=== PATIENT | male | born 1950 | race Caucasian/White ===

== ENCOUNTER → 2016-12-12 | Day surgery (SDC) | payer MEDICARE, OTHER ==
[~2016-12-12] MED LIST: ASACOL400 MG PO; ASPIR LOW81 MG PO; ATROVENT30 ML INH; FENOFIBRATE160 MG PO; FLORINEF ACETA0.1 MG PO; LEVAQUIN 5500 MG/TA1 PO; METHADONE10 MG PO; PERCOCET 325 MG1 TA2 PO; PHENERGAN 25 TA25 MG PO; PLAVIX 75MG TAB75 MG PO; RESTORIL15 MG PO; THEOPHYLLINE E300 MG PO; ZOCOR10 M1 PO; ZOCOR40 MG PO; ZOFRAN8 MG PO; ZYRTEC10 MG PO
== END ==
LOC: MSO 08:35
DX: K57.30 Diverticulosis of large intestine without perforation or abscess without bleeding (principal); G47.33 Obstructive sleep apnea (adult) (pediatric); J44.9 Chronic obstructive pulmonary disease, unspecified; J45.909 Unspecified asthma, uncomplicated; Z87.891 Personal history of nicotine dependence
CPT/HCPCS: 00810; J7120

== ENCOUNTER → 2017-02-17 | Outpatient (CLI) | payer MEDICARE, OTHER ==
[2015-11-09 15:51] VITALS: BP 137/90
== END ==
LOC: CARDREHAB 10:24
DX: I25.3 Aneurysm of heart (principal); R06.00 Dyspnea, unspecified; E78.5 Hyperlipidemia, unspecified; Z87.891 Personal history of nicotine dependence; I20.8 Other forms of angina pectoris
CPT/HCPCS: A9500

== ENCOUNTER → 2017-03-24 | Outpatient (CLI) | payer MEDICARE, OTHER ==
[~2017-03-24] VITALS: Ht 180.3 cm; Wt 108.6 kg
[2017-03-24 17:15] VITALS: BP 191/101
== END ==
LOC: AMSURD 16:30
DX: Z01.818 Encounter for other preprocedural examination (principal); I26.99 Other pulmonary embolism without acute cor pulmonale; E78.5 Hyperlipidemia, unspecified; M17.0 Bilateral primary osteoarthritis of knee

== ENCOUNTER → 2017-05-23 | Outpatient (CLI) | payer MEDICARE, OTHER ==
[2017-03-24 17:15] VITALS: BP 191/101
== END ==
LOC: LAB 16:04
DX: E29.1 Testicular hypofunction (principal)

== ENCOUNTER → 2017-12-05 | Outpatient (CLI) | payer MEDICARE, OTHER ==
[2017-03-24 17:15] VITALS: BP 191/101
[2017-12-05 11:52] LABS: EOS # 0.2 (0.04-0.40); EOS % 3.1 % (0.0-4.0); HEMATOCRIT 45.5 % (42.0-52.0); HEMOGLOBIN 15.7 g/dL (13.5-18.0); LYMPH# 1.7 (1.50-4.00); MEAN CELL VOLUME 79 fl (78-100); MEAN CORPUSCULAR HEMOGLOBIN 27 pg (27-31); MEAN CORPUSCULAR HGB CONC 35 g/dL (33-37); MEAN PLATELET VOLUME 9.6 fl (7.4-10.4); MONO # 0.8 (0.20-0.80); NEU # 4.1 (1.40-6.50); PLATELET COUNT 250 K/mm3 (130-400); RED BLOOD COUNT 5.73 M/mm3 (4.20-5.60); RED CELL DISTRIBUTION WIDTH 14.9 % (11.5-14.5); WHITE BLOOD COUNT 6.8 K/mm3 (4.8-10.8)
[2017-12-05 11:57] LABS: CALCIUM 9.1 mg/dL (8.4-10.2); POTASSIUM 3.8 mmol/L (3.6-5.0); TOTAL BILIRUBIN 0.4 mg/dL (0.2-1.3); TOTAL PROTEIN 7.2 g/dL (6.3-8.2)
[2017-12-05 13:14] LABS: ERYTHROCYTE SEDIMENTATION RATE 2 mm/hr (0-20)
[2017-12-06 00:25] LABS: TESTOSTERONE 723 ng/dL (221-716)
== END ==
LOC: LAB 11:23
PROVIDERS: Internal Medicine
DX: R55 Syncope and collapse (principal); G64 Other disorders of peripheral nervous system; F33.1 Major depressive disorder, recurrent, moderate; E11.9 Type 2 diabetes mellitus without complications

== ENCOUNTER → 2017-12-25 | Outpatient (CLI) | payer MEDICARE, OTHER ==
[~2017-12-25] VITALS: Ht 180.3 cm; Wt 108.6 kg
[~2017-12-25] MED LIST changes: +ASPIRIN E.C. 8181 MG PO; +CELEXA 20MG20 MG/TA1 PO; +CYPROHEPTADINE H4 M1 PO; +DEPO-TESTOS200 MG/M1 IM; +FLORINEF 00.1 MG/TAB PO; +KLONOPIN 1MG1 MG PO; +SLOW-MAG 106 MG1 ECT PO; +TOPAMAX25 MG PO; +TURMERIC538 MG PO; +ZOCOR40 M1 PO
[2017-12-25 10:00] VITALS: BP 162/107
[2017-12-25 10:30] VITALS: BP 159/108
== END ==
LOC: AMSURD 09:56
DX: R07.89 Other chest pain (principal); R55 Syncope and collapse; Z88.5 Allergy status to narcotic agent; Z88.8 Allergy status to other drugs, medicaments and biological substances; Z88.6 Allergy status to analgesic agent; Z88.1 Allergy status to other antibiotic agents; Z91.040 Latex allergy status

== ENCOUNTER → 2018-07-17 | Outpatient (CLI) | payer MEDICARE, OTHER ==
[2017-12-25 10:30] VITALS: BP 159/108
[2018-07-17 12:13] LABS: EOS # 0.2 (0.04-0.40); EOS % 2.3 % (0.0-4.0); HEMATOCRIT 42.9 % (42.0-52.0); HEMOGLOBIN 15.2 g/dL (13.5-18.0); LYMPH# 1.8 (1.50-4.00); MEAN CELL VOLUME 80 fl (78-100); MEAN CORPUSCULAR HEMOGLOBIN 28 pg (27-31); MEAN CORPUSCULAR HGB CONC 35 g/dL (33-37); MEAN PLATELET VOLUME 9.3 fl (7.4-10.4); MONO # 0.9 (0.20-0.80); NEU # 4.9 (1.40-6.50); PLATELET COUNT 220 K/mm3 (130-400); RED BLOOD COUNT 5.36 M/mm3 (4.20-5.60); RED CELL DISTRIBUTION WIDTH 13.9 % (11.5-14.5); WHITE BLOOD COUNT 7.8 K/mm3 (4.8-10.8)
[2018-07-17 12:34] LABS: ALBUMIN 4.2 g/dL (3.5-5.0); CALCIUM 8.7 mg/dL (8.4-10.2); POTASSIUM 3.2 mmol/L (3.6-5.0); TOTAL BILIRUBIN 1.2 mg/dL (0.2-1.3); TOTAL PROTEIN 7.2 g/dL (6.3-8.2)
[2018-07-17 13:32] LABS: ERYTHROCYTE SEDIMENTATION RATE 2 mm/hr (0-20)
[2018-07-17 23:33] LABS: TESTOSTERONE 421 ng/dL (221-716)
== END ==
LOC: LAB 11:45
PROVIDERS: Internal Medicine
DX: Z12.5 Encounter for screening for malignant neoplasm of prostate (principal); Z12.11 Encounter for screening for malignant neoplasm of colon; G47.33 Obstructive sleep apnea (adult) (pediatric); E78.5 Hyperlipidemia, unspecified; E29.1 Testicular hypofunction

== ENCOUNTER → 2018-08-21 | Outpatient (CLI) | payer MEDICARE, OTHER ==
[2017-12-25 10:30] VITALS: BP 159/108
== END ==
LOC: LAB 11:59
DX: Z12.11 Encounter for screening for malignant neoplasm of colon (principal)

== ENCOUNTER → 2019-04-29 | Outpatient (CLI) | payer MEDICARE, OTHER ==
[2017-12-25 10:30] VITALS: BP 159/108
== END ==
LOC: RAD 14:40
DX: M25.512 Pain in left shoulder (principal); W19.XXXA Unspecified fall, initial encounter

== ENCOUNTER → 2019-06-27 | Outpatient (CLI) | payer MEDICARE, OTHER ==
[2017-12-25 10:30] VITALS: BP 159/108
[2019-06-27 16:23] LABS: BASO # 0.1 (0.02-0.10); EOS # 0.3 (0.04-0.40); EOS % 4.3 % (0.0-4.0); HEMATOCRIT 44.5 % (42.0-52.0); HEMOGLOBIN 15.1 g/dL (13.5-18.0); LYMPH# 2.2 (1.50-4.00); MEAN CELL VOLUME 80 fl (78-100); MEAN CORPUSCULAR HEMOGLOBIN 27 pg (27-31); MEAN CORPUSCULAR HGB CONC 34 g/dL (33-37); MEAN PLATELET VOLUME 9.2 fl (7.4-10.4); MONO # 0.7 (0.20-0.80); NEU # 3.2 (1.40-6.50); PLATELET COUNT 252 K/mm3 (130-400); RED BLOOD COUNT 5.54 M/mm3 (4.20-5.60); RED CELL DISTRIBUTION WIDTH 13.6 % (11.5-14.5); WHITE BLOOD COUNT 6.5 K/mm3 (4.8-10.8)
[2019-06-27 16:36] LABS: ALBUMIN 4.5 g/dL (3.4-4.8); POTASSIUM 3.9 mmol/L (3.5-5.1)
[2019-06-27 16:37] LABS: CALCIUM 8.5 mg/dL (8.3-10.5)
[2019-06-27 16:38] LABS: TOTAL PROTEIN 7.6 g/dL (6.2-8.1)
[2019-06-27 16:40] LABS: TOTAL BILIRUBIN 0.7 mg/dL (0.2-1.2)
[2019-06-27 16:45] LABS: MAGNESIUM 1.9 mg/dL (1.60-2.60)
[2019-06-27 17:25] LABS: ERYTHROCYTE SEDIMENTATION RATE 3 mm/hr (0-20)
[2019-06-27 23:29] LABS: TESTOSTERONE 213 ng/dL (221-716)
== END ==
LOC: LAB 16:04
PROVIDERS: Internal Medicine
DX: J44.9 Chronic obstructive pulmonary disease, unspecified (principal); G64 Other disorders of peripheral nervous system; E78.2 Mixed hyperlipidemia; F33.1 Major depressive disorder, recurrent, moderate

== ENCOUNTER → 2019-07-03 | Outpatient (CLI) | payer MEDICARE, OTHER ==
[2017-12-25 10:30] VITALS: BP 159/108
[2019-07-03 10:27] LABS: HEMATOCRIT 42.3 % (42.0-52.0); HEMOGLOBIN 14.3 g/dL (13.5-18.0); MEAN CELL VOLUME 80 fl (78-100); MEAN CORPUSCULAR HEMOGLOBIN 27 pg (27-31); MEAN CORPUSCULAR HGB CONC 34 g/dL (33-37); MEAN PLATELET VOLUME 9.7 fl (7.4-10.4); PLATELET COUNT 228 K/mm3 (130-400); RED CELL DISTRIBUTION WIDTH 13.9 % (11.5-14.5); WHITE BLOOD COUNT 8.3 K/mm3 (4.8-10.8)
[2019-07-03 11:08] LABS: LYMPHOCYTE 19 % (20-51); MONOCYTE 10 % (3-10); NEUTROPHILS 70 % (42-75)
== END ==
LOC: LAB 10:00
PROVIDERS: Family Medicine
DX: K04.7 Periapical abscess without sinus (principal); R60.0 Localized edema

== ENCOUNTER 2019-07-07 14:19 | Emergency (ER) | payer MEDICARE, OTHER ==
[~2019-07-07] VITALS: Ht 180.3 cm; Wt 105.9 kg
[2019-07-07] MEDS ORDERED: DOLOPHINE HCL5 MG PO (14:30)
[2019-07-07 16:09] VITALS: BP 149/91
== END 2019-07-07 16:14 | disposition home or self-care (01) ==
LOC: ED 14:19
DX: S43.61XA Sprain of right sternoclavicular joint, initial encounter (principal); G62.9 Polyneuropathy, unspecified; G47.30 Sleep apnea, unspecified; Z79.02 Long term (current) use of antithrombotics/antiplatelets; Z79.52 Long term (current) use of systemic steroids; Z98.890 Other specified postprocedural states; W11.XXXA Fall on and from ladder, initial encounter; Y92.009 Unspecified place in unspecified non-institutional (private) residence as the place of occurrence of the external cause

== ENCOUNTER → 2019-08-22 | Outpatient (CLI) | payer MEDICARE, OTHER ==
[~2019-08-22] MED LIST changes: +DOLOPHINE HCL5 MG PO
== END ==
LOC: RAD 16:37
DX: M25.512 Pain in left shoulder (principal)

== ENCOUNTER → 2019-10-03 | Outpatient (CLI) | payer MEDICARE, OTHER ==
[2019-10-03 17:04] LABS: HEMATOCRIT 43.5 % (42.0-52.0); HEMOGLOBIN 14.5 g/dL (13.5-18.0); MEAN CELL VOLUME 80 fl (78-100); MEAN CORPUSCULAR HEMOGLOBIN 27 pg (27-31); MEAN CORPUSCULAR HGB CONC 33 g/dL (33-37); MEAN PLATELET VOLUME 9.4 fl (7.4-10.4); PLATELET COUNT 212 K/mm3 (130-400); RED BLOOD COUNT 5.46 M/mm3 (4.20-5.60); RED CELL DISTRIBUTION WIDTH 14.8 % (11.5-14.5); WHITE BLOOD COUNT 6.5 K/mm3 (4.8-10.8)
[2019-10-03 17:20] LABS: ALBUMIN 4.2 g/dL (3.4-4.8); POTASSIUM 4.4 mmol/L (3.5-5.1)
[2019-10-03 17:23] LABS: TOTAL PROTEIN 6.8 g/dL (6.2-8.1)
[2019-10-03 17:25] LABS: TOTAL BILIRUBIN 0.7 mg/dL (0.2-1.2)
[2019-10-03 18:04] LABS: URINE APPEARANCE CLEAR; URINE COLOR YELLOW; URINE GLUCOSE NEGATIVE (NEGATIVE); URINE PROTEIN(semi-quant) TRACE mg/dL (NEGATIVE)
[2019-10-03 18:05] LABS: URINE BILIRUBIN NEGATIVE (NEGATIVE); URINE BLOOD NEGATIVE (NEGATIVE); URINE KETONE NEGATIVE (NEGATIVE); URINE LEUKOCYTE ESTERASE NEGATIVE (NEGATIVE); URINE NITRATE NEGATIVE (NEGATIVE); URINE UROBILINOGEN NORMAL (NORMAL)
[2019-10-03 18:27] LABS: LYMPHOCYTE 40 % (20-51); MONOCYTE 8 % (3-10); NEUTROPHILS 50 % (42-75)
== END ==
LOC: RAD 16:38
PROVIDERS: Internal Medicine
DX: K57.30 Diverticulosis of large intestine without perforation or abscess without bleeding (principal); N20.2 Calculus of kidney with calculus of ureter; Z87.442 Personal history of urinary calculi
CPT/HCPCS: Q9967

== ENCOUNTER → 2019-10-10 | Outpatient (CLI) | payer MEDICARE, OTHER | LOC: RAD 11:00 | DX: N20.0 Calculus of kidney (principal) ==